=== PATIENT | female | born 2000 | race Caucasian/White ===

== ENCOUNTER → 2021-09-17 | Outpatient (CLI) | payer BC, OTHER ==
[2021-09-17 16:24] LABS: BASOPHILS % (AUTO) 0 % (0-10); EOSINOPHILS # (AUTO) 0.1 10^3/uL (0.0-0.3); EOSINOPHILS % (AUTO) 2 % (0-10); HEMATOCRIT 39 % (35-52); HEMOGLOBIN 13.1 g/dL (11.5-16.0); LYMPHOCYTES # (AUTO) 1.8 10^3/uL (1.0-4.0); LYMPHOCYTES % (AUTO) 34 % (12-44); MEAN CORPUSCULAR HEMOGLOBIN 31 pg (25-34); MEAN CORPUSCULAR HGB CONC 34 g/dL (32-36); MEAN CORPUSCULAR VOLUME 91 fL (80-99); MEAN PLATELET VOLUME 9.4 fL (9.0-12.2); MONOCYTES # (AUTO) 0.4 10^3/uL (0.0-1.0); MONOCYTES % (AUTO) 8 % (0-12); NEUTROPHILS # (AUTO) 2.9 10^3/uL (1.8-7.8); NEUTROPHILS % (AUTO) 55 % (42-75); PLATELET COUNT 248 10^3/uL (130-400); WHITE BLOOD COUNT 5.2 10^3/uL (4.3-11.0)
[2021-09-17 16:38] LABS: ALBUMIN 4.2 GM/DL (3.2-4.5); POTASSIUM 3.7 MMOL/L (3.6-5.0)
[2021-09-17 16:39] LABS: CALCIUM 9.3 MG/DL (8.5-10.1)
[2021-09-17 16:40] LABS: TOTAL PROTEIN 6.9 GM/DL (6.4-8.2)
[2021-09-17 16:42] LABS: BILIRUBIN,TOTAL 0.4 MG/DL (0.1-1.0)
[2021-09-17 16:44] LABS: CREATININE SERUM 0.78 MG/DL (0.60-1.30)
== END ==
LOC: LAB 15:47
PROVIDERS: ATTEND Nurse Practitioner Family
DX: M79.89 Other specified soft tissue disorders (principal)
CPT/HCPCS: 36415; 80053; 85025; 85379

== ENCOUNTER → 2021-09-21 | Outpatient (CLI) | payer BC ==
--- NOTE | 2021-09-21 13:55 | Diagnostic Imaging Report ---
PROCEDURE: US venous upper extremity left. TECHNIQUE: Multiple Real-time grayscale images were obtained of left upper extremity in various projections. Additional spectral analysis and color Doppler duplex images were also obtained. INDICATION: Left arm swelling. FINDINGS: The left internal jugular vein as well as the left subclavian and axillary veins are patent. The brachial vein is patent. The basilic, cephalic, radial, and ulnar veins are patent. No thrombus is detected. No fluid collection or mass is identified. IMPRESSION: No evidence of left upper extremity DVT. Dictated by: Dictated on workstation # [id number]
== END ==
LOC: RAD 12:30
PROVIDERS: ATTEND Nurse Practitioner Family
DX: R22.32 Localized swelling, mass and lump, left upper limb (principal)